=== PATIENT | female | born 1935 | race Caucasian/White ===

== ENCOUNTER → 2018-05-29 | Outpatient (CLI) | payer MEDICARE ==
--- NOTE | 2018-05-29 10:29 | Diagnostic Imaging Report ---
Thyroid ultrasound History: Right thyroid nodule. Comparison: None Findings: The thyroid echotexture is heterogeneous. Vascularity is normal. The right lobe measures 5.8 x 2.4 x 2.6 cm. The left lobe measures 5.4 x 2.3 x 2.0 cm. The isthmus measures 0.4 cm. Right Lobe: There is a 1.8 x 1.2 x 1.3 cm hypoechoic (2 points), solid (2 points) nodule within the posterior aspect of the right thyroid gland. There are smooth margins (0 points). No echogenic foci are noted (0 points). The nodule is wider than tall (0 points). Left Lobe: No cystic mass or discrete solid nodule identified. cm. Isthmus: No cystic mass or discrete solid nodule identified. Lymph Nodes: No cervical lymph nodes are identified. IMPRESSION: Moderately suspicious right thyroid nodule (TI-RADS 4; 4 points). Recommend FNA for further evaluation. Signed by: Dr. Catherine Coreas MD on 05/29/2018 10:26 AM
== END ==
LOC: US 09:40
DX: E04.1 Nontoxic single thyroid nodule (principal)
CPT/HCPCS: 76536

== ENCOUNTER → 2018-12-27 | Outpatient (CLI) | payer MEDICARE ==
--- NOTE | 2018-12-27 14:52 | Diagnostic Imaging Report ---
EXAM: US THYROID DATE: 12/27/2018 1:43 PM INDICATION: Thyroid nodule COMPARISON: 05/29/2018 FINDINGS: The right thyroid lobe measures 5.8 x 2.2 x 2.8 cm. There is a hypoechoic solid nodule identified within the posterior/inferior right thyroid lobe measuring 1.5 x 1.6 x 1.1 cm , previously 1.8 x 1.2 x 1.3. 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 No new nodules are identified. The isthmus measures 6 mm and appears unremarkable. Left thyroid lobe measures 5.4 x 2.4 x 2.3 cm. No focal nodules are identified. IMPRESSION: Single, stable appearing right thyroid nodule as detailed above. Signed by: Dr. Keenan Lomax MD on 12/27/2018 2:48 PM
== END ==
LOC: US 13:35
DX: E04.1 Nontoxic single thyroid nodule (principal)
CPT/HCPCS: 76536